=== PATIENT | female | born 1980 | race Two or more races ===

== ENCOUNTER 2018-10-12 11:30 | Emergency (ER) | payer BC ==
[~2018-10-12] VITALS: Ht 154.9 cm; Wt 66.7 kg
[2018-10-12 12:43] VITALS: Ht 154.9 cm; Wt 66.7 kg
[2018-10-12 17:08] VITALS: BP 124/59
== END 2018-10-12 17:08 | disposition home or self-care (01) ==
LOC: ED 11:30
DX: L02.214 Cutaneous abscess of groin (principal); E78.00 Pure hypercholesterolemia, unspecified
CPT/HCPCS: J2001